=== PATIENT | female | born 1965 | race Caucasian/White ===

== ENCOUNTER → 2017-08-13 | Outpatient (CLI) | payer BC ==
--- NOTE | 2017-08-14 10:02 | MM ---
Reason for exam: screening (asymptomatic). Last mammogram was performed 1 year and 4 months ago. History: Patient is postmenopausal. Benign excisional biopsy of the left breast, 1991. Took hormonal contraceptives for 2 years. Physical Findings: A clinical breast exam by your physician is recommended on an annual basis and results should be correlated with mammographic findings. MG Screening Mammo w CAD Bilateral CC and MLO view(s) were taken. Prior study comparison: March 30, 2016, bilateral MG screening mammo w CAD. March 09, 2015, bilateral MG screening mammo w CAD. There are scattered fibroglandular densities. There are typically benign round calcifications in both breasts. There is no discrete abnormality. Asymmetric decreased in size in the left breast redemonstrated. ASSESSMENT: Benign, BI-RAD 2 RECOMMENDATION: Routine screening mammogram of both breasts in 1 year.
== END | disposition home or self-care (01) ==
LOC: RADMAMWWP 10:53
PROVIDERS: ATTEND Obstetrics & Gynecology
DX: Z12.31 Encounter for screening mammogram for malignant neoplasm of breast (principal)
CPT/HCPCS: 77067

== ENCOUNTER → 2017-12-07 | Outpatient (CLI) | payer BC ==
--- NOTE | 2017-12-07 14:47 | XR ---
EXAMINATION TYPE: XR KUB DATE OF EXAM: 12/07/2017 COMPARISON: 12/04/2013 HISTORY: Pain left renal stone with hematuria TECHNIQUE: One view abdominal series FINDINGS: The osseous structures are intact. The bowel gas pattern is nonspecific. Lung bases are clear. Pelvis: Stable appearing calcification in the left pelvis likely vascular. 2 tiny calculi in the righ t hemipelvis also stable and therefore likely vascular. Right kidney: There are 6 calcifications overlying the right kidney all measuring less than 5 mm. Nex t Left kidney: There are 5 calcifications overlying the left kidney with all measuring less than 5 mm. IMPRESSION: 1. Bilateral nephrolithiasis which is similar to the prior exam..
== END | disposition home or self-care (01) ==
LOC: RADXRMAIN 10:36
PROVIDERS: ATTEND Internal Medicine Hematology & Oncology
DX: N20.0 Calculus of kidney (principal)
CPT/HCPCS: 74018

== ENCOUNTER → 2018-09-04 | Outpatient (CLI) | payer BC ==
--- NOTE | 2018-09-05 09:38 | MM ---
Reason for exam: screening (asymptomatic). Last mammogram was performed 1 year and 1 month ago. History: Patient is postmenopausal. Benign excisional biopsy of the left breast, 1991. Took hormonal contraceptives for 2 years. Physical Findings: A clinical breast exam by your physician is recommended on an annual basis and results should be correlated with mammographic findings. MG 3D Screening Mammo W/Cad Bilateral CC and MLO view(s) were taken. Prior study comparison: August 13, 2017, bilateral MG screening mammo w CAD. March 30, 2016, bilateral MG screening mammo w CAD. Finding: There is an equal density (isodense), indistinct irregular mass in the posterior position of the left breast on MLO view. Asymmetric breast tissue greater in the right breast. New finding since August 13, 2017 and March 30, 2016. ASSESSMENT: Incomplete: need additional imaging evaluation, BI-RAD 0 RECOMMENDATION: Special view mammogram of the left breast. If lesion persists on supplemental views, image directed ultrasound is recommended. [facility] will attempt to contact patient to return for supplemental views and ultrasound if indicated.
== END | disposition home or self-care (01) ==
LOC: RADMAMWWP 07:42
PROVIDERS: ATTEND Obstetrics & Gynecology
DX: Z12.31 Encounter for screening mammogram for malignant neoplasm of breast (principal)
CPT/HCPCS: 77063; 77067

== ENCOUNTER → 2018-09-11 | Outpatient (CLI) | payer BC ==
--- NOTE | 2018-09-11 11:21 | MM ---
Reason for exam: additional evaluation requested from abnormal screening. Last mammogram was performed less than 1 month ago. History: Patient is postmenopausal. Benign excisional biopsy of the left breast, 1991. Took hormonal contraceptives for 2 years. Physical Findings: Nurse did not find any significant physical abnormalities on exam. MG 3D Work Up W/Cad LT Spot compression MLO and ML view(s) were taken of the left breast. Prior study comparison: September 04, 2018, bilateral MG 3d screening mammo w/cad. August 13, 2017, bilateral MG screening mammo w CAD. No suspicious abnormality. Left superior posterior depth asymmetry resolves on additional views and appears as fibroglandular tissue. No significant new findings when compared with previous films. These results were verbally communicated with the patient and result sheet given to the patient on 09/11/18. ASSESSMENT: Negative, BI-RAD 1 RECOMMENDATION: Return to routine screening mammogram schedule for both breasts.
== END ==
LOC: RADMAMWWP 09:31
PROVIDERS: ATTEND Obstetrics & Gynecology
DX: R92.8 Other abnormal and inconclusive findings on diagnostic imaging of breast (principal)
CPT/HCPCS: 77061; 77065

== ENCOUNTER → 2020-01-12 | Outpatient (CLI) | payer BC ==
--- NOTE | 2020-01-14 11:06 | MM ---
Reason for exam: screening (asymptomatic). Last mammogram was performed 1 year and 4 months ago. History: Patient is postmenopausal. Benign excisional biopsy of the left breast, 1991. Took hormonal contraceptives for 2 years. Physical Findings: A clinical breast exam by your physician is recommended on an annual basis and results should be correlated with mammographic findings. MG 3D Screening Mammo W/Cad Bilateral CC and MLO view(s) were taken. Prior study comparison: September 11, 2018, left breast MG 3d work up w/cad LT. September 04, 2018, bilateral MG 3d screening mammo w/cad. The breast tissue is almost entirely fat. No significant changes when compared with prior studies. ASSESSMENT: Benign, BI-RAD 2 RECOMMENDATION: Routine screening mammogram of both breasts in 1 year.
== END | disposition home or self-care (01) ==
LOC: RADMAMWWP 12:38
PROVIDERS: ATTEND Obstetrics & Gynecology
DX: Z12.31 Encounter for screening mammogram for malignant neoplasm of breast (principal)
CPT/HCPCS: 77063; 77067

== ENCOUNTER → 2021-01-12 | Outpatient (CLI) | payer BC ==
--- NOTE | 2021-01-13 14:59 | MM ---
Reason for exam: screening (asymptomatic). Last mammogram was performed 1 year ago. History: Patient is postmenopausal. Benign excisional biopsy of the left breast, 1991. Took hormonal contraceptives for 2 years. Physical Findings: A clinical breast exam by your physician is recommended on an annual basis and results should be correlated with mammographic findings. MG 3D Screening Mammo W/Cad Bilateral CC and MLO view(s) were taken. Prior study comparison: January 12, 2020, bilateral MG 3d screening mammo w/cad. September 11, 2018, left breast MG 3d work up w/cad LT. There are scattered fibroglandular densities. ASSESSMENT: Negative, BI-RAD 1 RECOMMENDATION: Routine screening mammogram of both breasts in 1 year.
== END | disposition home or self-care (01) ==
LOC: RADMAMWWP 07:47
PROVIDERS: ATTEND Obstetrics & Gynecology
DX: Z12.31 Encounter for screening mammogram for malignant neoplasm of breast (principal)
CPT/HCPCS: 77063; 77067

== ENCOUNTER → 2022-01-16 | Outpatient (CLI) | payer BC ==
--- NOTE | 2022-01-17 11:32 | MM ---
Reason for Exam: Screening (asymptomatic). Last screening mammogram was performed 12 month(s) ago. Patient History: Menarche at age 13. First Full-Term at age 21. Postmenopausal. Patient used Hormonal Contraceptives for 2 years. 1991, Benign Excisional Biopsy on the left side. Risk Values: Marjorie 5 year model risk: 1.2%. NCI Lifetime model risk: 8.7%. Prior Study Comparison: 09/11/2018 Left Diagnostic Mammogram, [facility]. 01/12/2020 Bilateral Screening Mammogram, [facility]. 01/12/2021 Bilateral Screening Mammogram, [facility]. Tissue Density: There are scattered fibroglandular densities. Findings: Analyzed By CAD. There is no suspicious group of microcalcifications or new suspicious mass in either breast. A benign-appearing calcification. Asymmetric density in the upper outer margin of the right breast. Overall Assessment: Incomplete: need additional imaging evaluation, BI-RAD 0 Management: Special View Mammogram of the right breast. A clinical breast exam by your physician is recommended on an annual basis and results should be correlated with mammographic findings. Electronically signed and approved by: Timothy Whitehead M.D. Radiologis
== END | disposition home or self-care (01) ==
LOC: RADMAMWWP 07:46
PROVIDERS: ATTEND Obstetrics & Gynecology
DX: Z12.31 Encounter for screening mammogram for malignant neoplasm of breast (principal)
CPT/HCPCS: 77067

== ENCOUNTER → 2022-01-18 | Outpatient (CLI) | payer BC ==
--- NOTE | 2022-01-18 10:05 | MM ---
Reason for Exam: Additional evaluation requested from abnormal screening. Last screening mammogram was performed less than 1 month ago. Patient History: Menarche at age 13. First Full-Term at age 21. Postmenopausal. Patient used Hormonal Contraceptives for 2 years. 1991, Benign Excisional Biopsy on the left side. Risk Values: Marjorie 5 year model risk: 1.2%. NCI Lifetime model risk: 8.7%. Tissue Density: Right: There are scattered fibroglandular densities. Findings: Analyzed By CAD. Asymmetric density upper right MLO view persists on spot compression imaging over is less conspicuous on the true lateral view. Ultrasound of the upper half of the right breast is advised. Overall Assessment: Incomplete: need additional imaging evaluation, BI-RAD 0 Management: Diagnostic Breast Ultrasound of the right breast. A clinical breast exam by your physician is recommended on an annual basis and results should be correlated with mammographic findings. This exam should not preclude additional follow-up of suspicious palpable abnormalities. Results were given to the patient verbally at the time of exam. Electronically signed and approved by: Hernán Cantu M.D. Radiologis
--- NOTE | 2022-01-18 10:33 | USB ---
Reason for Exam: Additional evaluation requested from prior study. Patient History: Menarche at age 13. First Full-Term at age 21. Postmenopausal. Patient used Hormonal Contraceptives for 2 years. 1991, Benign Excisional Biopsy on the left side. Risk Values: Marjorie 5 year model risk: 1.2%. NCI Lifetime model risk: 8.7%. Technique: Method: Targeted. Prior Study Comparison: 01/12/2020 Bilateral Screening Mammogram, [facility]. 01/12/2021 Bilateral Screening Mammogram, [facility]. 01/16/2022 Bilateral MG screening mammo w CAD, [facility]. Findings: The upper section of the breast of the right breast, the axilla of the right breast and the retroareolar of the right breast were scanned. No solid or cystic masses are identified.. Overall Assessment: Probably benign, BI-RAD 3 Management: Diagnostic Mammogram of the right breast in 6 months. A clinical breast exam by your physician is recommended on an annual basis and results should be correlated with mammographic findings. Electronically signed and approved by: Hernán Cantu M.D. Radiologis
== END | disposition home or self-care (01) ==
LOC: RADMAMWWP 09:41
PROVIDERS: ATTEND Obstetrics & Gynecology
DX: R92.8 Other abnormal and inconclusive findings on diagnostic imaging of breast (principal)
CPT/HCPCS: 77061; 77065

== ENCOUNTER → 2022-02-17 | Outpatient (CLI) | payer BC ==
--- NOTE | 2022-02-17 13:16 | XR ---
EXAMINATION TYPE: XR KUB DATE OF EXAM: 02/17/2022 COMPARISON: 12/07/2017 HISTORY: Pain TECHNIQUE: One view abdominal series FINDINGS: The osseous structures are intact. The bowel gas pattern is nonspecific. Lung bases are clear. Pelvis: Stable appearing calcification in the left pelvis likely vascular. 2 tiny calculi in the righ t hemipelvis also stable and therefore likely vascular. Right kidney: There are 6 calcifications overlying the right kidney all measuring less than 5 mm. Left kidney: There are three calcifications overlying the left kidney with all measuring less than 5 mm. IMPRESSION: 1. Bilateral nephrolithiasis which is similar to the prior exam.
== END | disposition home or self-care (01) ==
LOC: RADXRMAIN 12:45
PROVIDERS: ATTEND Urology
DX: N20.0 Calculus of kidney (principal)
CPT/HCPCS: 74018

== ENCOUNTER → 2022-04-17 | Outpatient (CLI) | payer BC ==
--- NOTE | 2022-04-17 11:10 | CT ---
EXAMINATION TYPE: CT abdomen pelvis wo con DATE OF EXAM: 04/17/2022 HISTORY: right sided abdominal pain. CT DLP: 1158 mGycm. Automated Exposure Control for Dose Reduction was Utilized. TECHNIQUE: CT scan of the abdomen and pelvis is performed without oral or IV contrast. COMPARISON: Abdominal x-ray February 17, 2022 FINDINGS: Within the limitations of a non-contrast study, the following observations are made. LUNG BASES: No significant abnormality is appreciated. LIVER/GB: No significant abnormality is appreciated. PANCREAS: No significant abnormality is seen. SPLEEN: No significant abnormality is seen. ADRENALS: No significant abnormality is seen. KIDNEYS: Bilateral renal calculi redemonstrated. But kidney has approximately 8 scattered calculi wit h larger calculi lower pole left kidney measuring up to 12 mm long axis sagittal image 85. Right kidn ey has approximately 5-6 more grouped calculi in the mid to lower pole level measuring up to 7 mm in size. No hydronephrosis or obstructing ureteral calculi bilaterally. No intraluminal calculi in the p oorly distended bladder. BOWEL: Slightly suboptimal evaluation without enteric contrast. Few scattered colonic diverticula wit h most prominent diverticula involving the sigmoid colon. No CT evidence for acute diverticulitis. No suspicious small or large bowel dilatation. GENITAL ORGANS: Anteverted uterus. LYMPH NODES: No greater than 1cm abdominal or pelvic lymph nodes are appreciated. OSSEOUS STRUCTURES: Moderate disc space narrowing L4-L5 level. Peak curvature centered lower thoracic spine with mild to moderate multilevel anterior and lateral spurring. OTHER: Mild calcified plaque of the aorta extends into branch vessels. IMPRESSION: Nonobstructing bilateral renal calculi redemonstrated as detailed above. No hydronephrosi s or obstructing renal calculi bilaterally seen.
== END | disposition home or self-care (01) ==
LOC: RADCTMAIN 09:10
PROVIDERS: ATTEND Urology
DX: N20.0 Calculus of kidney (principal); N39.9 Disorder of urinary system, unspecified
CPT/HCPCS: 74176

== ENCOUNTER → 2022-04-28 | Outpatient (CLI) | payer BC ==
--- NOTE | 2022-04-28 08:53 | US ---
EXAMINATION TYPE: US venous doppler duplex LE LT DATE OF EXAM: 04/28/2022 8:24 AM COMPARISON: NONE CLINICAL HISTORY: M79.662 Pain LLE R22.42 Swelling LLE. SIDE PERFORMED: Left TECHNIQUE: The lower extremity deep venous system is examined utilizing real time linear array sonog lyla with graded compression, doppler sonography and color-flow sonography. VESSELS IMAGED: Common Femoral Vein Deep Femoral Vein Greater Saphenous Vein * Femoral Vein Popliteal Vein Small Saphenous Vein * Proximal Calf Veins (* superficial vessels) Left Leg: Negative for DVT Incidental note is made of small fluid collection left pop fossa measuring 2.6 x 1.0 x 1.8 cm . IMPRESSION: No evidence for DVT
== END | disposition home or self-care (01) ==
LOC: RADUSWWP 08:21
PROVIDERS: ATTEND Internal Medicine Hematology & Oncology
DX: M79.662 Pain in left lower leg (principal); R22.42 Localized swelling, mass and lump, left lower limb

== ENCOUNTER 2022-05-04 07:30 | Day surgery (SDC) | payer BC ==
[2022-05-01 12:08] VITALS: BMI 35.9
--- NOTE | 2022-05-03 07:11 | P.GSHP ---
History of Present Illness H&P Date: 05/03/22 Chief Complaint: Flank pain The patient is a 56-year-old white female with a history of urolithiasis. She recently presented back with recurrent E. coli UTIs. CT scan shows bilateral renal calculi. The largest on the right measures 7 mm in size, wall the largest on the left measures 12 mm. It is anticipated that these may be infected calculi. She has experienced intermittent bilateral flank pain. - Constitutional Constitutional: Denies chills, Denies fever - Genitourinary (Female) Genitourinary: Reports flank pain, Reports kidney stones, Reports urinary frequency Past Medical History Past Medical History: GERD/Reflux, Hyperlipidemia, Hypertension Additional Past Medical History / Comment(s): KIDNEY STONES History of Any Multi-Drug Resistant Organisms: None Reported Past Surgical History: Back Surgery, Tubal Ligation Additional Past Surgical History / Comment(s): LITHOTRIPSY Past Anesthesia/Blood Transfusion Reactions: No Reported Reaction Smoking Status: Current every day smoker - Past Family History Mother Family Medical History: No Reported History Medications and Allergies Home Medications Medication Instructions Recorded Confirmed Type Aspirin EC [Ecotrin Low Dose] 81 mg PO DAILY 05/01/22 05/01/22 History Ezetimibe [Zetia] 10 mg PO HS 05/01/22 05/01/22 History Lansoprazole [Prevacid] 15 mg PO DAILY 05/01/22 05/01/22 History Losartan Potassium 100 mg PO DAILY 05/01/22 05/01/22 History Multivitamins, Thera [Multivitamin 1 tab PO DAILY 05/01/22 05/01/22 History (formulary)] Simvastatin [Zocor] 20 mg PO HS 05/01/22 05/01/22 History busPIRone HCL 15 mg PO BID 05/01/22 05/01/22 History traZODone HCL [Desyrel] 50 mg PO HS 05/01/22 05/01/22 History Allergies Allergy/AdvReac Type Severity Reaction Status Date / Time No Known Allergies Allergy Verified 05/01/22 11:55 Surgical - Exam - General well developed, well nourished, no distress - Neck no masses, trachea midline - Respiratory normal respiratory effort - Abdomen Abdomen: soft, non tender, no guarding, no rigid, no rebound - Psychiatric oriented to time, oriented to person, oriented to place, speech is normal, memory intact Results - Imaging CT scan - abdomen: report reviewed, image reviewed Assessment and Plan (1) Calculus of kidney Status: Acute Code(s): N20.0 - CALCULUS OF KIDNEY SNOMED Code(s): 61811279 Plan: Cystoscopy, bilateral ureteroscopy with Holmium laser lithotripsy and stone basketing, bilateral ureteral stent insertion. The procedure has been reviewed in detail with the patient. She is aware of potential risks, which include anesthesia, bleeding, infection, ureteral injury, and inability to remove all calculi. She is also aware of the possible need for a secondary procedure.
[2022-05-04] MEDS ORDERED: LACTATED RINGERS 1,000 ML IV ONE ×2 (08:17→09:58)
[2022-05-04] MEDS ORDERED: ONDANSETRON 4 MG/2 ML VIAL ONE (08:27)
[2022-05-04] MEDS ORDERED: ONDANSETRON 4 MG/2 ML VIAL IVP ONE (08:30)
[2022-05-04] MEDS ORDERED: DEXAMETHASONE SOD PHOSPHATE 4 MG/ML 1 ML VIAL IVP ONE (08:31)
[2022-05-04] MEDS ORDERED: MIDAZOLAM 2 MG/2 ML VIAL IVP ONE (08:32)
--- NOTE | 2022-05-04 08:45 | XR ---
EXAMINATION TYPE: XR KUB DATE OF EXAM: 05/04/2022 COMPARISON: 02/17/2022 HISTORY: Pain TECHNIQUE: One view abdominal series FINDINGS: The osseous structures are intact. The bowel gas pattern is nonspecific. Right kidney: There are approximately 8 calcifications overlying the right kidney the largest measuri ng 4.5 mm. Left kidney: There is a lower pole calcification left kidney measuring 8.8 mm stable from prior exam. Punctate 1 to 2 mm upper pole calcification also suspected. Findings are similar to prior exam. Hypertrophic and degenerative change of the spine. Pelvic calcifications are stable and likely vascul ar. Arthropathy of the hips correlate for femoral acetabular impingement on the left. IMPRESSION: 1. Stable bilateral nephrolithiasis..
[2022-05-04] MEDS ORDERED: HYDROmorphone (PF) 1 MG/ML ONE (09:02)
[2022-05-04] MEDS ORDERED: ePHEDrine 50 MG/ML 1 ML VIAL ONE (09:02)
[2022-05-04] MEDS ORDERED: NEOSTIGMINE 1 MG/ML 10 ML VIAL ONE (09:02)
[2022-05-04] MEDS ORDERED: fentaNYL (PF) 50 MCG/ML 2 ML AMP ONE (09:02)
[2022-05-04] MEDS ORDERED: LIDOCAINE 4% LTA KIT (4 ML) TOPICAL ONE (09:02)
[2022-05-04] MEDS ORDERED: GLYCOPYRROLATE 0.2 MG/ML 2 ML VIAL ONE (09:02)
[2022-05-04] MEDS ORDERED: LIDOCAINE 2% INJ 20 MG/ML (2 ML VIAL) ONE (09:02)
[2022-05-04] MEDS ORDERED: SUCCINYLCHOLINE CHLORIDE 200 MG/10 ML VIAL IV ONE (09:02)
[2022-05-04] MEDS ORDERED: ROCURONIUM 10 MG/ML (5 ML VIAL) IV ONE (09:02)
[2022-05-04] MEDS ORDERED: KETOROLAC 15 MG/ML 1 ML VIAL ONE (09:02)
[2022-05-04] MEDS ORDERED: PROPOFOL 10 MG/ML 20 ML VIAL IV ONE (09:02)
[2022-05-04 12:32] VITALS: TEMP 96.8
[2022-05-04 12:46] VITALS: RESP 16
--- NOTE | 2022-05-04 13:33 | FL ---
EXAMINATION TYPE: FL guidance operating room DATE OF EXAM: 05/04/2022 HISTORY: Fluoroscopy time 1 minute and 40 seconds of fluoroscopy provided. IMPRESSION: 1. Fluoroscopy time.
[2022-05-04 13:47] VITALS: BP 149/88; PULSE 67
--- NOTE | 2022-05-04 14:02 | P.OP ---
Date of Procedure: 05/04/22 Preoperative Diagnosis: Bilateral renal calculi Postoperative Diagnosis: Same Procedure(s) Performed: Cystoscopy, bilateral ureteroscopy with Holmium laser lithotripsy and stone basketing, bilateral ureteral stent insertion Anesthesia: AVA Surgeon: Guille Hancock Estimated Blood Loss (ml): 10 IV fluids (ml): 1,100 Pathology: other (Calculus fragments, sent for chemical analysis) Condition: stable Disposition: PACU Indications for Procedure: The patient is a 56-year-old white female with a history of urolithiasis. She recently presented back with recurrent E. coli UTIs. CT scan shows bilateral renal calculi. The largest on the right measures 7 mm in size, wall the largest on the left measures 12 mm. It is anticipated that these may be infected calculi. She has experienced intermittent bilateral flank pain. Operative Findings: Bilateral lower pole renal calculi, fragmented and removed via stone basketing. Fluoroscopy reveals 2 small right lower pole calculi which could not be located. Description of Procedure: The patient was taken to the operating room and placed in the dorsolithotomy position, with legs supported in Chavo stirrups. The external genitalia was prepped and draped sterilely. The 30 lens was used to introduce the 21-Luxembourger Hillman cystoscopic sheath through the urethra and into the bladder under direct vision. The bladder was examined in its entirety. Both ureteral orifices were normal anatomic location and configuration, and clear urine effluxed from both. No tumors or foreign bodies were seen. A 0.038 inch Glidewire was passed through the cystoscope. The right ureteral orifice was cannulated, and the Glidewire was advanced up to the renal pelvis. The cystoscope was removed, and an 11/13-Luxembourger ureteral access catheter was passed over the wire, up to the proximal ureter. The Hillman [employer] flexible ureteroscope was then passed through the ureteral access catheter sheath, up to the right renal pelvis. Each calyx was examined. Calculi were identified within a lower pole calyx. The 272 micron Holmium laser probe was passed through the ureteroscope, and lithotripsy was performed. As the calculi fragmented, pieces were removed using a 1.9- Luxembourger nitinol basket. Additional calculi were identified within an adjacent calyx. It was very difficult to remove these, due to angulation issues. Nonetheless, it was possible to fragment them and remove fragments using the nitinol basket. Once this was completed, 2 calculi were seen on fluoroscopy which could not be located. Pullout ureteroscopy showed no evidence of ureteral injury. The Glidewire was passed up to the right renal pelvis, and then backloaded into the cystoscope. A 24 cm, 4.8-Luxembourger double-J ureteral stent was placed over the wire. An identical procedure was performed on the left side. The only calculus seen measured 9-12 mm and was located within a left lower pole calyx. After fragmenting the calculus, all fragments were removed using the 1.9-Luxembourger nitinol basket. Once again, pullout ureteroscopy showed no evidence of ureteral trauma, and a left ureteral stent was placed. Proper stent positioning was verified fluoroscopically on each side. The bladder was emptied and the cystoscope removed. The patient tolerated the procedure well and was taken to the recovery room in stable condition. [facility] Report: Procedure Acuity: Elective Stone Size and Location: Bilateral renal calculi, largest 12 mm left lower pole calyx Ureteral Dilation: No Ureteral Access Sheath Used: Yes Stone Sent for Analysis: Yes All Stones/Fragments Were Removed with a Basket: Yes Complications: No Preoperative Antibiotics Given: Yes Stent Placed: Yes If Stent Placed, Was String Left Attached: No If Stent Placed, When is it to be Removed: 1 week Discharge Medications: Toradol, tamsulosin, Detrol LA
== END 2022-05-04 14:42 | disposition home or self-care (01) ==
LOC: OR 07:30
PROVIDERS: ATTEND Urology
DX: N20.0 Calculus of kidney (principal); N28.89 Other specified disorders of kidney and ureter; I10 Essential (primary) hypertension; E78.5 Hyperlipidemia, unspecified; K21.9 Gastro-esophageal reflux disease without esophagitis; Z98.51 Tubal ligation status; Z98.890 Other specified postprocedural states; F17.200 Nicotine dependence, unspecified, uncomplicated; Z79.82 Long term (current) use of aspirin; Z79.02 Long term (current) use of antithrombotics/antiplatelets; Z79.899 Other long term (current) drug therapy
CPT/HCPCS: 52356; 82365; 74018; C2625; C1769; J2250; J0330; J1100; J2710; J0690; J2405; J3010; J1170; J1885; J2704; J2001

== ENCOUNTER → 2022-06-19 | Outpatient (CLI) | payer BC ==
--- NOTE | 2022-06-19 16:56 | XR ---
EXAMINATION TYPE: XR KUB DATE OF EXAM: 06/19/2022 COMPARISON: KUB 05/04/2022. HISTORY: Calculus of kidney TECHNIQUE: Single supine KUB image of the abdomen is obtained FINDINGS: Small bowel demonstrates no evidence for dilatation or air fluid levels. Gas and fecal material is seen in non-distended colon. No convincing evidence for pneumoperitoneum. Previously seen left renal calculus is no longer visualized on today's exam. Calcifications within th e right mid kidney with 2 demonstrated measuring 4 and 3 mm. No definitive calcifications along the c ourse of both ureters. Stable pelvic phleboliths. The lung bases are clear. The osseous structures are intact. IMPRESSION: Decrease in bilateral renal calculi with 2 visualized right renal calculi remaining.
--- NOTE | 2022-06-19 17:10 | US ---
EXAMINATION TYPE: US kidneys/renal and bladder DATE OF EXAM: 06/19/2022 COMPARISON: CT abdomen pelvis 04/17/2022 CLINICAL HISTORY: N20.0 CALCULUS OF KIDNEY. Hx of stones removed 05/04/2022 EXAM MEASUREMENTS: Right Kidney: 11.3 x 4.7 x 5.5 cm Left Kidney: 11.6 x 4.8 x 5.0 cm Right Kidney: No hydronephrosis or masses seen. Left Kidney: No hydronephrosis or masses seen Bladder: wnl Bilateral Jets seen: Right only There is no evidence for hydronephrosis at this point in time. The 2 right renal calculi demonstrate d on the KUB today are not well visualized on the ultrasound. No visualized shadowing left renal calc rosa elena. No masses are identified. No perinephric fluid collections. The urinary bladder is anechoic. IMPRESSION: No hydronephrosis. The 2 right renal calculi demonstrated on the KUB today are not well visualized on the ultrasound.
== END | disposition home or self-care (01) ==
LOC: RADUSWWP 16:06
PROVIDERS: ATTEND Urology
DX: N20.0 Calculus of kidney (principal)
CPT/HCPCS: 74018; 76770

== ENCOUNTER → 2023-04-05 | Outpatient (CLI) | payer BC ==
--- NOTE | 2023-04-05 12:52 | XR ---
EXAMINATION TYPE: XR KUB DATE OF EXAM: 04/05/2023 COMPARISON: 06/19/2022 HISTORY: Pain TECHNIQUE: One view abdominal series FINDINGS: The osseous structures are intact. The bowel gas pattern is nonspecific. Calcifications in the pelvi s are likely vascular. There is hypertrophic arthropathy hypertrophic and degenerative change of the spine. Right kidney: There are 2 calcifications measuring approximately 3 mm overlying the right renal hilum . Left kidney: There is a punctate 1 mm mid to lower pole renal calculus. There is a 2 mm mid pole dens ity which likely represents bowel content. IMPRESSION: 1. Bilateral sub-5 mm renal calculi. Two residual calculi noted in the right renal hilum measuring 3 mm are stable in size and position relative to the prior exam.
== END | disposition home or self-care (01) ==
LOC: RADXRMAIN 12:10
PROVIDERS: ATTEND Internal Medicine Hematology & Oncology
DX: N20.0 Calculus of kidney (principal); Z23 Encounter for immunization; Z20.89 Contact with and (suspected) exposure to other communicable diseases
CPT/HCPCS: 74018

== ENCOUNTER → 2023-07-11 | Outpatient (CLI) | payer BC ==
--- NOTE | 2023-07-11 08:53 | XR ---
EXAMINATION TYPE: XR KUB DATE OF EXAM: 07/11/2023 Comparison: 04/05/2023 Clinical History: 58-year-old female R31.1 XR KUB, bilateral kidney stones Findings: 5 mm and 4 mm calcifications right mid abdomen. Tiny pelvic phlebolith. Nonobstructive bowel gas hannah jeffy. Mild overall stool burden. Impression: 5 mm and 4 mm right renal calculi redemonstrated.
== END | disposition home or self-care (01) ==
LOC: RADXRMAIN 08:19
PROVIDERS: ATTEND Urology
DX: N20.0 Calculus of kidney (principal)
CPT/HCPCS: 74018

== ENCOUNTER → 2023-10-11 | Outpatient (CLI) | payer BC ==
--- NOTE | 2023-10-11 13:42 | XR ---
EXAM TYPE: LUMBAR SPINE X RAY SERIES COMPARISON: NONE HISTORY: Pain TECHNIQUE: 4 views are submitted. FINDINGS: Alignment is anatomic. The pedicles are intact. The transverse processes are intact. There is no d iffuse osteopenia. Multilevel moderate to severe degenerative disc disease and facet arthropathy. Mul tilevel foraminal encroachment suspected. SI joints patent. There are vascular calcifications. There are bilateral suspected renal calculi. Arthropathy of the interspinous distance. IMPRESSION: 1. Multilevel moderate to severe degenerative disc disease, facet arthropathy and suspected foraminal encroachment. 2. Bilateral nephrolithiasis.
--- NOTE | 2023-10-11 13:43 | XR ---
EXAMINATION TYPE: XR sacrum coccyx DATE OF EXAM: 10/11/2023 COMPARISON: NONE HISTORY: Three views are submitted. Sacrum is intact. SI joints are symmetric. Coccyx appears to be intact. Visualized pelvic structures intact. Bilateral upper quadrant calcifications likely vascular. Diff use osteopenia with multilevel hypertrophic and degenerative changes in the spine. IMPRESSION: 1. No acute fracture.
== END | disposition home or self-care (01) ==
LOC: RADXRMAIN 13:00
PROVIDERS: ATTEND Internal Medicine Hematology & Oncology
DX: M47.816 Spondylosis without myelopathy or radiculopathy, lumbar region (principal); N20.0 Calculus of kidney
CPT/HCPCS: 72100; 72220

== ENCOUNTER → 2023-12-07 | Outpatient (CLI) | payer BC ==
--- NOTE | 2023-12-10 13:19 | MM ---
Reason for Exam: Screening (asymptomatic). Last mammogram was performed 1 year(s) and 11 month(s) ago. Patient History: Menarche at age 13. First Full-Term at age 21. Postmenopausal. Patient used Hormonal Contraceptives for 2 years. 1991, Benign Excisional Biopsy on the left side. Risk Values: Marjorie 5 year model risk: 1.4%. NCI Lifetime model risk: 8.3%. Prior Study Comparison: 01/16/2022 Bilateral MG screening mammo w CAD, [facility]. 01/18/2022 Right MG 3D work up w/cad RT, [facility]. 08/09/2022 Right MG 3D diag mammo w/cad RT, [facility]. Tissue Density: There are scattered areas of fibroglandular density. Findings: Analyzed By CAD. There is no suspicious group of microcalcifications or new suspicious mass in either breast. Overall Assessment: Benign, BI-RAD 2 Management: Screening Mammogram of both breasts in 1 year. . Patient should continue monthly self-breast exams. A clinical breast exam by your physician is recommended on an annual basis. This exam should not preclude additional follow-up of suspicious palpable abnormalities. Note on Marjorie scores and lifetime risk: 1. A Marjorie score greater than 3% is considered moderate risk. If this is the case, consider specialist referral to assess eligibility for a risk reducing agent. 2. If overall lifetime risk for the development of breast cancer is 20% or higher, the patient may qualify for future screening with alternating mammogram and breast MRI. Electronically signed and approved by: Hernán Cantu M.D. Radiologis
== END | disposition home or self-care (01) ==
LOC: RADMAMWWP 12:49
PROVIDERS: ATTEND Obstetrics & Gynecology
DX: Z12.31 Encounter for screening mammogram for malignant neoplasm of breast (principal); Z78.0 Asymptomatic menopausal state
CPT/HCPCS: 77063; 77067

== ENCOUNTER → 2024-12-18 | Outpatient (CLI) | payer BC ==
--- NOTE | 2024-12-18 10:19 | XR ---
EXAMINATION TYPE: XR KUB DATE OF EXAM: 12/18/2024 10:01 AM COMPARISON: None. CLINICAL INDICATION: Female, 59 years old with history of N20.0 CALCULUS OF KIDNEY WITH CALCULUS OF U RETER, TECHNIQUE: XR KUB view(s) obtained. FINDINGS: There is a normal bowel gas pattern. Psoas margins are normal. No organomegaly is present. Punctate calcifications are at the mid inferior pole right kidney. Couple of very tiny calcifications may be within the mid left kidney. Small stable calcifications are within the inferior pelvis IMPRESSION: 1. Small bilateral renal stones [facility], , 12/18/2024 10:16 AM
== END | disposition home or self-care (01) ==
LOC: RADXRMAIN 09:07
PROVIDERS: ATTEND Internal Medicine Hematology & Oncology
DX: Z23 Encounter for immunization (principal); Z20.89 Contact with and (suspected) exposure to other communicable diseases; N20.2 Calculus of kidney with calculus of ureter
CPT/HCPCS: 74018

== ENCOUNTER → 2025-01-06 | Outpatient (CLI) | payer BC ==
--- NOTE | 2025-01-06 12:13 | MM ---
Reason for Exam: Screening (asymptomatic). Last mammogram was performed 1 year(s) and 1 month(s) ago. Patient History: Menarche at age 13. First Full-Term at age 21. Postmenopausal. Patient used Hormonal Contraceptives for 2 years. 1991, Benign Excisional Biopsy on the left side. Risk Values: Marjorie 5 year model risk: 1.4%. NCI Lifetime model risk: 8.1%. Prior Study Comparison: 01/18/2022 Right MG 3D work up w/cad RT, [facility]. 08/09/2022 Right MG 3D diag mammo w/cad RT, [facility]. 12/07/2023 Bilateral MG 3D screening mammo w/cad, [facility]. Tissue Density: There are scattered areas of fibroglandular density. Findings: Analyzed By CAD. There is no suspicious group of microcalcifications or new suspicious mass in either breast. Overall Assessment: Negative, BI-RAD 1 Management: Screening Mammogram of both breasts in 1 year. . Patient should continue monthly self-breast exams. A clinical breast exam by your physician is recommended on an annual basis. This exam should not preclude additional follow-up of suspicious palpable abnormalities. Note on Marjorie scores and lifetime risk: 1. A Marjorie score greater than 3% is considered moderate risk. If this is the case, consider specialist referral to assess eligibility for a risk reducing agent. 2. If overall lifetime risk for the development of breast cancer is 20% or higher, the patient may qualify for future screening with alternating mammogram and breast MRI. [facility], , 01/06/2025 12:10 PM. Electronically signed and approved by: Yuniel Xiong M.D.
== END | disposition home or self-care (01) ==
LOC: RADMAMWWP 11:10
PROVIDERS: ATTEND Obstetrics & Gynecology
DX: Z12.31 Encounter for screening mammogram for malignant neoplasm of breast (principal); R92.323 Mammographic fibroglandular density, bilateral breasts; Z78.0 Asymptomatic menopausal state; Z92.0 Personal history of contraception
CPT/HCPCS: 77063; 77067